=== PATIENT | male | born 1955 | race Caucasian/White ===

== ENCOUNTER 2023-04-24 11:17 | Emergency (ER) | payer MEDICARE, SELFPAY ==
--- NOTE | 2023-04-24 11:16 | ECG_ITS ---
APPROVED REPORT Exam: Resting ECG HR:96 bpm ECG Measurements Heart Rate 96 AXES NJ 143 P 75 QRSd 117 QRS -19 QT 351 T 30 QTc 405 Conclusion SINUS RHYTHM WITH OCCASIONAL VENTRICULAR PREMATURE COMPLEXES WITH OCCASIONAL SUPRAVENTRICULAR PREMATURE COMPLEXES MODERATE INTRAVENTRICULAR CONDUCTION DELAY [110+ ms QRS DURATION] BORDERLINE ECG UNCONFIRMED REPORT Electronically signed by : Bar Mejia MD 04/25/2023 17:31:48
[2023-04-24 11:20] VITALS: BP 123/88; PULSE 99; RESP 18; TEMP 36.6; O2SAT 95; BMI 25.6
--- NOTE | 2023-04-24 11:22 | XR_ITS ---
PROCEDURE INFORMATION: Exam: XR Chest Exam date and time: 04/24/2023 11:24 AM Age: 68 years old Clinical indication: Pain; Chest pressure; Additional info: Cp TECHNIQUE: Imaging protocol: Radiologic exam of the chest. Views: 1 view. COMPARISON: No relevant prior studies available. FINDINGS: Lungs: There is some crowding the or bronchovascular markings right lower lung zone that may be due to combination of upper lobe emphysematous changes the, patient rotation and decreased inspiratory effort. The however possibility of patchy interstitial infiltrate cannot be ruled out. Pleural spaces: Unremarkable. No pleural effusion. No pneumothorax. Heart/Mediastinum: Unremarkable. No cardiomegaly. Bones/joints: Unremarkable for age. IMPRESSION: Findings inconclusive for patchy right lower lobe infiltrate which could be clarified on follow-up PA and lateral chest if clinically warranted.
--- NOTE | 2023-04-24 11:24 | HMH.EDGENADL ---
Discharge Plan Disposition Patient Disposition: Home, Self-Care Condition: Good Prescriptions Prescriptions: New sulfamethoxazole-trimethoprim [Bactrim DS] 800-160 mg tablet 1 tab PO DAILY 14 Days Qty: 14 0RF No Action atorvastatin 80 mg Tablet 80 mg PO HS amiodarone 200 mg Tablet 200 mg PO DAILY clopidogrel [Plavix] 75 mg Tablet 75 mg PO DAILY oxycodone-acetaminophen [Percocet] 10-325 mg Tablet 1 tab PO Q4H PRN (Reason: Pain) gabapentin 800 mg Tablet 800 mg PO TID pantoprazole [Protonix] 40 mg Tablet,Delayed Release (Dr/Ec) 40 mg PO DAILY ferrous sulfate 325 mg (65 mg iron) Tablet 325 mg PO DAILY aspirin 81 mg Tablet 81 mg PO DAILY Enbrel SureClick 50 mg/mL (1 mL) Pen Injector 50 mg SQ WEEKLY albuterol sulfate 90 mcg/actuation Aero Powdr Breath Act W/Sensor 2 inh INHALATION Q6H Referrals Follow up/Referrals: Jenae Davila [Primary Care Provider] - See instructions Activity Restrictions/Add. Instructions Additional Instructions/Restrictions: Return for worsening chest pain or other concerns. Drink plenty of fluids. Follow-up this week with your primary care provider. Clinical Impressions Clinical Impression: Chest pain, Dizziness Discharge ED Provider: Mike Zambrano General Adult HPI General Chief complaint: Chest Pain Stated complaint: cp, weakness Time Seen by Provider: 04/24/23 11:21 History of Present Illness HPI narrative: Patient presents with a 2-month history of dizziness. He states the dizziness is provoked when he goes from a lying or sitting position to standing position. He had some chest pain earlier this morning which is subsided he states it lasted 2 to 3 minutes. He was at rest when the pain began and he denies associated vomiting or diaphoresis or dyspnea. Related Data Home Medications Medication Instructions Recorded Confirmed albuterol sulfate 90 mcg/actuation 2 inh inhalation Q6H Breathing 04/24/23 04/24/23 breath activated powder problems inhaler,sensor amiodarone 200 mg tablet 200 mg PO DAILY Hypertension 04/24/23 04/24/23 aspirin 81 mg tablet 81 mg PO DAILY Blood thinner 04/24/23 04/24/23 atorvastatin 80 mg tablet 80 mg PO HS Cholesterol 04/24/23 04/24/23 clopidogrel 75 mg tablet (Plavix) 75 mg PO DAILY Blood thinner 04/24/23 04/24/23 etanercept 50 mg/mL (1 mL) 50 mg SQ WEEKLY RA 04/24/23 04/24/23 subcutaneous pen injector (Enbrel SureClick) ferrous sulfate 325 mg (65 mg 325 mg PO DAILY Supplement 04/24/23 04/24/23 iron) tablet gabapentin 800 mg tablet 800 mg PO TID Pain 04/24/23 04/24/23 oxycodone-acetaminophen 10 mg-325 1 tab PO Q4H PRN Pain 04/24/23 04/24/23 mg tablet (Percocet) pantoprazole 40 mg tablet,delayed 40 mg PO DAILY Reflux/Acid reflux 04/24/23 04/24/23 release (Protonix) Previous Rx's Medication Instructions Recorded sulfamethoxazole 800 1 tab PO DAILY 14 days #14 tabs 04/24/23 mg-trimethoprim 160 mg tablet (Bactrim DS) Allergies Allergy/AdvReac Type Severity Reaction Status Date / Time No Known Allergies Allergy Verified 04/24/23 11:27 [facility] Disclaimer: The information contained in this section may have been updated after the patient was seen, as this information can be updated by other users. Medical History (Updated 04/24/23 @ 13:40 by Mike Zambrano MD) High cholesterol Hypertension Lung cancer Psoriasis Surgical History (Updated 04/24/23 @ 11:40 by Maggi Daniels RN) Hx of appendectomy Hx of cholecystectomy S/P partial lobectomy of lung Family History (Updated 04/24/23 @ 11:40 by Maggi Daniels RN) Other No significant family history Social History (Updated 04/24/23 @ 11:40 by Maggi Daniels RN) Smoking Status: Current every day smoker alcohol intake: never current occupational status: unemployed Travel in the last 8 weeks: None ROS Obtained: Yes All systems reviewed & no additional complaints e
[2023-04-24 11:34] VITALS: BP 104/85; BP 118/80; BP 122/75; PULSE 113; PULSE 92; PULSE 98
--- NOTE | 2023-04-24 11:35 | PC.NURSE ---
pt got dizzy during standing position, had to sit down
[2023-04-24 11:42] LABS: Basophils # 0.1 K/mm3 (0-0.2); Basophils % 0.3 % (0.1-2.0); Eosinophils % 0.2 % (0.1-12.0); Hematocrit 35.1 % (42.0-52.0); Hemoglobin 11.5 g/dL (14.1-18.0); Lymphocytes # 1.7 K/mm3 (0.7-4.5); Lymphocytes % 11.1 % (10-50); Mean Corpuscular HGB Conc 32.9 g/dL (31.8-35.4); Mean Corpuscular Hemoglobin 31.2 pg (27.0-31.2); Monocytes # 0.7 K/mm3 (0.1-1.0); Monocytes % 4.5 % (1.7-9.3); Neutrophils # 12.8 K/mm3 (1.8-7.8); Neutrophils % 83.9 % (37.0-80.0); Platelet Count 516 K/mm3 (142-424); Red Cell Distribution Width 16.2 % (11.5-17.5); White Blood Count 15.2 K/mm3 (4.8-10.8)
[2023-04-24 11:44] LABS: MANUAL DIFFERENTIAL MANUAL DIFFERENTIAL (MANUAL DIFF)
[2023-04-24 11:46] LABS: Chloride 88 mmol/L (98-107); Potassium 3.3 mmoL/L (3.5-5.1); Sodium 128 mmol/L (136-145)
[2023-04-24 11:48] LABS: Alanine Aminotransferase 31 U/L (12-78); Aspartate Amino Transferase 37 U/L (17-59); Blood Urea Nitrogen 26 mg/dl (9-20); Creatinine Clearance Estimated 83 mL/min (50-200); Estimated Glomerular Filt Rate 66 ml/min (>60); GFR (African American) 80 ML/MIN (>60)
[2023-04-24 11:49] LABS: Albumin Level 3.6 g/dl (3.5-5.0); Albumin/Globulin Ratio 1.5 (1.1-1.8); Alkaline Phosphatase 56 U/L (38-126); Anion Gap 13.3 mEq/L (5-15); Bilirubin,Total 0.2 mg/dl (0.2-1.3); Calcium 8.6 mg/dl (8.4-10.2); Carbon Dioxide 30 mmol/L (22.0-30.0); Globulin 2.4 g/dL (1.3-3.2); Glucose 99 mg/dl (74-100)
[2023-04-24 12:01] LABS: Troponin I 0.05 ng/ml (0.00-0.034)
[2023-04-24 12:08] LABS: Lymphocytes % 13 % (10-50); Monocytes % 11 % (2-9); Neutrophils % 76 % (42-76); Platelet Estimate Slight Increase; RBC Morphology Normal; Total Cells Counted 100
[2023-04-24 12:16] LABS: Coronavirus 19, PCR Not Detected (NotDetected); Influenza A, PCR Not Detected (NotDetected); Influenza B, PCR Not Detected (NotDetected)
[2023-04-24 12:17] LABS: Lactic Acid 1.4 mmol/L (0.7-2.1)
[2023-04-24 12:30] VITALS: BP 127/79; PULSE 89; RESP 13; O2SAT 93
[2023-04-24 12:45] VITALS: BP 122/79; PULSE 64; RESP 11; O2SAT 96
--- NOTE | 2023-04-24 12:59 | PC.NURSE ---
patient given a soft drink, patient given update on his plan of care
--- NOTE | 2023-04-24 13:05 | PC.NURSE ---
Report from Maggi Andre RN
[2023-04-24 13:07] VITALS: PULSE 98
--- NOTE | 2023-04-24 13:28 | PC.NURSE ---
VILMA GUILLAUME at discussing POC
[2023-04-24 13:36] VITALS: BP 129/82; PULSE 97; RESP 19; TEMP 36.9; O2SAT 98
== END 2023-04-24 13:43 | disposition home or self-care (01) ==
PROVIDERS: Emergency Provider Emergency Medicine; PCP Physician Assistant Medical
DX: R07.9 Chest pain, unspecified (principal); R42 Dizziness and giddiness; I10 Essential (primary) hypertension; F17.200 Nicotine dependence, unspecified, uncomplicated
CPT/HCPCS: 71045; 80053; 83605; 84484; 85007; 85025; 87040; 87636; 93005; 99285; C9803; U0003; U0005